=== PATIENT | male | born 1965 | race Two or more races ===

== ENCOUNTER 2021-06-11 15:15 | Inpatient (IN) | payer MEDICAID ==
[~2021-06-11] VITALS: Ht 167.6 cm; Wt 61.2 kg
--- NOTE | 2021-06-11 15:37 | NUR ---
TO ER BED 11. L SIDE BODY PAIN, S/P LADDER SLID AND FELL APPROX 6 FEET HIGH. L WRIST LAC NOTED. +HEAD, L KNEE TRAUMA. PAIN WORST TO L WRIST. NOT UTD W/ TDAP
[2021-06-11] MEDS ORDERED: TDAP [DIPH/PERTUSSIS/TET] 0.5 ML VIAL IM ONE ×2 (16:00→16:04)
[2021-06-11] MEDS ORDERED: MORPHINE SULFATE INJ 2 MG/ML DISP.SYRIN IV ONE ×2 (16:00→18:00)
--- NOTE | 2021-06-11 16:01 | NUR ---
X RAY AT BEDSIDE
[2021-06-11] MEDS ORDERED: MORPHINE SULFATE INJ 4 MG/ML DISP.SYRIN ONE ×2 (16:04→17:58)
--- NOTE | 2021-06-11 16:21 | NUR ---
MOSHE ESTABLISHED R KHADIJAH 20G.
[2021-06-11] MEDS ORDERED: PROPOFOL 200 MG/20 ML VIAL IV ONE (16:30)
[2021-06-11] MEDS ORDERED: PROPOFOL 20 ML IV ONE (16:54)
[2021-06-11] MEDS ORDERED: CEFAZOLIN 1 GM in IV D5W 50 ML IV ONE (17:30)
[2021-06-11] MEDS ORDERED: KETOROLAC TROMETHAMINE 15 MG/ML VIAL ONE (17:58)
[2021-06-11] MEDS ORDERED: KETOROLAC TROMETHAMINE INJ 30 MG/ML VIAL IV ONE (18:00)
[2021-06-11] MEDS ORDERED: HYDROCODONE/APAP 5/325MG TABLET PO PRN (18:30)
[2021-06-11] MEDS ORDERED: ONDANSETRON HCL/PF 4 MG/2 ML VIAL IVP PRN (18:30)
[2021-06-11] MEDS ORDERED: ACETAMINOPHEN 325 MG TABLET PO PRN (18:30)
[2021-06-11] MEDS ORDERED: Z GUARD REMEDY 4 OZ OINT TP PRN (18:30)
[2021-06-11] MEDS ORDERED: TEMAZEPAM 15 MG CAPSULE PO PRN (18:30)
[2021-06-11 19:26] LABS: CALCIUM, SERUM 8.4 mg/dL (8.5-10.1); CREATININE 1.1 mg/dL (0.6-1.3); POTASSIUM 3.5 mmol/L (3.5-5.1)
--- NOTE | 2021-06-11 20:04 | NUR ---
REPORT GIVEN TO TORI HORTA
--- NOTE | 2021-06-11 20:05 | NUR ---
PATIENT BEING TRANSFERRED TO [facility]
[2021-06-11 20:10] VITALS: BP 134/79
[2021-06-11 20:10] LABS: BASOPHILS % (AUTO) 0.2 % (0.0-2.0); EOSINOPHILS % (AUTO) 0.5 % (0.0-6.0); HEMATOCRIT 39 % (39-51); HEMOGLOBIN 12.7 g/dL (13.5-17.5); LYMPHOCYTES # (AUTO) 0.8 K/uL (0.8-4.8); LYMPHOCYTES % (AUTO) 5.9 % (20.0-44.0); MEAN CORPUSCULAR HGB CONC 33 g/dl (31.0-36.0); MEAN CORPUSCULAR VOLUME 88 fL (80-96); MONOCYTES # (AUTO) 0.5 K/uL (0.1-1.30); MONOCYTES % (AUTO) 3.5 % (2.0-12.0); NEUTROPHILS # (AUTO) 12.9 K/uL (1.8-8.9); NEUTROPHILS % (AUTO) 89.9 % (43.0-81.0); PLATELET COUNT (AUTO) 259 K/uL (150-450); RED BLOOD CELL COUNT(AUTO) 4.42 MIL/uL (4.5-6.0); WHITE BLOOD COUNT (AUTO) 14.3 K/uL (4.3-11.0)
[2021-06-11 20:30] VITALS: BP 134/79
[2021-06-11] MEDS: IV NS 0.9% 1,000 ML IV PRN (20:50)
[2021-06-11] MEDS: MORPHINE SULFATE INJ 2 MG/ML DISP.SYRIN IV PRN (21:00)
[2021-06-11] MEDS: CEFAZOLIN 1 GM in IV D5W 50 ML IV SCH (21:54)
[2021-06-12] MEDS: MORPHINE SULFATE INJ 2 MG/ML DISP.SYRIN IV PRN ×4 (03:21→20:24)
[2021-06-12] MEDS: CEFAZOLIN 1 GM in IV D5W 50 ML IV SCH ×3 (04:54→20:23)
[2021-06-12 06:36] LABS: BASOPHILS % (AUTO) 0.3 % (0.0-2.0); EOSINOPHILS % (AUTO) 0.3 % (0.0-6.0); HEMATOCRIT 36 % (39-51); HEMOGLOBIN 11.8 g/dL (13.5-17.5); LYMPHOCYTES # (AUTO) 1.7 K/uL (0.8-4.8); LYMPHOCYTES % (AUTO) 18.4 % (20.0-44.0); MEAN CORPUSCULAR HGB CONC 33 g/dl (31.0-36.0); MEAN CORPUSCULAR VOLUME 88 fL (80-96); MONOCYTES # (AUTO) 0.7 K/uL (0.1-1.30); MONOCYTES % (AUTO) 7.3 % (2.0-12.0); NEUTROPHILS # (AUTO) 6.9 K/uL (1.8-8.9); NEUTROPHILS % (AUTO) 73.7 % (43.0-81.0); PLATELET COUNT (AUTO) 228 K/uL (150-450); WHITE BLOOD COUNT (AUTO) 9.3 K/uL (4.3-11.0)
[2021-06-12 06:42] LABS: CALCIUM, SERUM 8.4 mg/dL (8.5-10.1); MAGNESIUM 2.1 mg/dL (1.8-2.4); POTASSIUM 3.6 mmol/L (3.5-5.1)
--- NOTE | 2021-06-12 07:32 | NUR ---
RN OPENING NOTES Patient seen comfortably lying in bed, breathing even and unlabored, no SOB, no apparent distress noted, denies any pain or discomfort at this time, no grimacing. Call light left within reach, safety precautions in place, brakes locked, side rails up X 2, will monitor closely for any changes.
[2021-06-12 07:54] LABS: THYROID STIMULATING HORMONE 0.534 uIU/mL (0.358-3.74)
[2021-06-12 08:00] VITALS: BP 121/71
[2021-06-12] MEDS: PANTOPRAZOLE 40 MG VIAL IV SCH (08:35)
[2021-06-12] MEDS: IV NS 0.9% 1,000 ML IV PRN (09:59)
--- NOTE | 2021-06-12 12:32 | NUR ---
Patient's belongings 1. wallet with cards, 2. yellow necklace with 2 charms (horse shoe and horn) 3. $726, placed in the safe in nursing office, reminded patient that belongings will be returned prior to discharge and if he needs it sooner to inform the nurse, patient verbalized understanding and gratitude. "No one can pick it up to keep it at home", patient stated. Belongings tag number [id number].
[2021-06-12] MEDS ORDERED: BUPIVACAINE 0.25% 75 MG/30 ML VIAL ONE (12:49)
[2021-06-12] MEDS ORDERED: LIDOCAINE 1% INJ 50 ML MDV IJ ONE (12:49)
--- NOTE | 2021-06-12 14:39 | NUR ---
Patient left for surgery around 02:38pm, remained NPO post-midnight, denies any abdominal pain, no apparent distress notes, no s/s of hypo/hyperglycemia, no change in level of consciousness, no tremors, denies any pain or discomfort, consents and checklist present in patients chart. Patient not wearing any jewelry.
[2021-06-12] MEDS ORDERED: FENTANYL PF 100MCG/2ML AMPUL ONE ×3 (14:51→18:30)
[2021-06-12] MEDS ORDERED: PROPOFOL 20 ML IV ONE (14:52)
[2021-06-12] MEDS ORDERED: MIDAZOLAM HCL 2 MG/2ML VIAL ONE (14:52)
[2021-06-12] MEDS ORDERED: BUPIVACAINE 0.5 % PF 150 MG/30 ML VIAL ONE (16:03)
--- NOTE | 2021-06-12 19:09 | NUR ---
RN CLOSING NOTES Patient not back in unit yet, endorsed to next shift for continuity of care.
[2021-06-12] MEDS ORDERED: ZOLPIDEM TARTRATE 5 MG TABLET PO PRN (19:30)
[2021-06-12] MEDS ORDERED: BISACODYL SUPP (10 MG) 10 MG/SUPP.RECT SUPP.RECT RC PRN (19:30)
[2021-06-12] MEDS ORDERED: SENNOSIDES 8.6 MG TABLET PO PRN (19:30)
[2021-06-12] MEDS ORDERED: HYDROCODONE/APAP 5/325MG TABLET PO PRN (19:30)
[2021-06-12] MEDS ORDERED: ONDANSETRON HCL/PF 4 MG/2 ML VIAL IVP PRN (19:30)
[2021-06-12] MEDS ORDERED: ACETAMINOPHEN 325 MG TABLET PO PRN (19:30)
[2021-06-12] MEDS ORDERED: DOCUSATE SODIUM 100 MG CAPSULE PO PRN (19:30)
--- NOTE | 2021-06-12 19:45 | NUR ---
MS RN OPENING NOTES RECEIVED PATIENT LAYING AWAKE IN BED. A/O X 4. PATIENT WITH REGULAR AND UNLABORED BREATHING ON ROOM AIR TOLERATED WELL. NO SIGNS OR SYMPTOMS OF DISTRESS NOTED AT THIS TIME. NO COMPLAINS OF PAIN OR DISCOMFORT AT THIS TIME. IV ACCESS RAC G #20 INFUSING NS @ 75 ML/HR. IV ACCESS PATENT AND INTACT. SAFETY PRECAUTIONS ENFORCED WITH BED LOCKED AND AT LOWEST POSITION. CALL LIGHT WITHIN REACH AT ALL TIMES. WILL CONTINUE TO MONITOR PATIENT.
[2021-06-12 20:00] VITALS: BP 145/78
[2021-06-12] MEDS: HYDROCODONE/APAP 5/325MG TABLET PO PRN (22:57)
[2021-06-13] MEDS: MORPHINE SULFATE INJ 2 MG/ML DISP.SYRIN IV PRN ×5 (00:30→23:10)
[2021-06-13] MEDS: CEFAZOLIN 1 GM in IV D5W 50 ML IV SCH (04:30)
--- NOTE | 2021-06-13 06:50 | NUR ---
MS RN CLOSING NOTES PATIENT STILL LAYING AWAKE IN BED. A/O X 4. PATIENT WITH REGULAR AND UNLABORED BREATHING ON ROOM AIR TOLERATED WELL. NO SIGNS OR SYMPTOMS OF DISTRESS NOTED AT THIS TIME. NO COMPLAINS OF PAIN OR DISCOMFORT AT THIS TIME. IV ACCESS RAC G #20 INFUSING NS @ 75 ML/HR. IV ACCESS PATENT AND INTACT. SAFETY PRECAUTIONS ENFORCED WITH BED LOCKED AND AT LOWEST POSITION. CALL LIGHT WITHIN REACH AT ALL TIMES. WILL ENDORSE CONTINUITY OF CARE TO DAY SHIFT NURSE.
[2021-06-13] MEDS: PANTOPRAZOLE 40 MG VIAL IV SCH (07:58)
--- NOTE | 2021-06-13 07:59 | NUR ---
WOUND CARE CONSULT: PT PRESENTS WITH ORTHOPEDIC DRESSING TO LEFT UPPER EXTREMITY WITH SMALL AMOUNT OF RED/PINK STRIKETHROUGH DRAINAGE. DISCUSSED WITH RN AND DNP. DEFER TO ORTHOPEDIC SURGEON. RN TO DISCUSS WITH SURGEON. ARM ELEVATED ON PILLOW WITH SLING IN PLACE. WILL SEE PRN.
[2021-06-13 08:00] VITALS: BP 121/72
--- NOTE | 2021-06-13 08:00 | NUR ---
Patient was noted to have minimal amount of reddish-pinkish drainage on his orthopedic dressing to left upper extremity, no unusual odor noted, Dr. Melendez made aware and stated that Alley PARKER will be coming to see patient. Site covered with dania wrapped dressings, and arm elevated on pillow with sling in place, no s/s of circulation impairment noted at this time, skin warm to touch, no pallor or cyanosis noted, pulse present during shift, no swelling noted at this time.
[2021-06-13] MEDS: IV NS 0.9% 1,000 ML IV PRN (08:26)
[2021-06-13 16:00] VITALS: BP 143/68
[2021-06-13] MEDS: HYDROCODONE/APAP 5/325MG TABLET PO PRN ×2 (16:30→20:56)
--- NOTE | 2021-06-13 18:38 | NUR ---
RN CLOSING NOTES Patient lying in bed, no shortness of breath, respirations even and unlabored, no apparent distress noted, no dizziness, no palpitations, no chest pain, remained afebrile. All due medications given per MD order, tolerating well. Patient has an order for IV fluids (0.9NS at 75ml/hr) IV site on his right antecubital, intact and IV fluids infusing well, no swelling, no redness, no c/o pain or discomfort at site. Patient S/P ORIF of left wrist yesterday, surgical site dressing noted with minimal amount of pinkish reddish drainage, no unusual odor, Dr. Perla made aware and acknowledged, Alley PARKER of Dr. Perla came to see patient today and changed the dania wrap, site wrapped in dania bandage and patient is wearing sling on left arm, no s/s of circulation impairment noted at this time, skin warm to touch, no pallor or cyanosis noted, pulse present during shift, minimal swelling noted at this time. Left upper extremity elevated with pillow, and ice packs applied. Pain medication given per MD order as needed when non pharmacological measures ineffective, noted with help. Aspiration precautions observed at all times, kept head of bed elevated, all needs anticipated, kept clean and dry, patient repositioned frequently, safety precautions in place, frequent visual checks rendered, side rails up X 2, brakes locked, call light left within reach, will endorse to next shift for continuity of care.
--- NOTE | 2021-06-13 19:15 | NUR ---
RN NOTE Pt awake in bed, watching TV. A/Ox4, able to make needs known. With LUE dressing clean/dry and intact and LUE splint/sling in place. He denies any pain at this time. No acute distress noted. safety measures in place. Will cont to monitor.
[2021-06-13 20:00] VITALS: BP 119/72
[2021-06-14] MEDS: HYDROCODONE/APAP 5/325MG TABLET PO PRN ×3 (03:26→13:14)
[2021-06-14] MEDS: IV NS 0.9% 1,000 ML IV PRN (04:51)
--- NOTE | 2021-06-14 06:37 | NUR ---
RN NOTE PT RESTING IN BED, EASILY AROUSABLE TO STIMULI. DENIES PAIN AT THIS TIME. PAIN WELL CONTROLLED WITH PRN PAIN MEDS THROUGHOUT THE SHIFT. PT IN NO ACUTE DISTRESS. ALL NEEDS ATTENDED TO. SAFETY MEASURES MAINTAINED.
--- NOTE | 2021-06-14 07:20 | NUR ---
ms rn received on bed, awake,alert,oriented x4,not in any form of distress, respirations even and unlabored,no sob noted, lungs are clear,abdomen soft,positive bowel sounds,denies pain at this time, s/p left wrist sx, w/ dressing dry and intact, will monitor patient.
[2021-06-14] MEDS ORDERED: PANTOPRAZOLE 40 MG TABLET.DR PO SCH (07:30)
[2021-06-14 08:00] VITALS: BP 138/71
[2021-06-14 08:15] VITALS: BP 138/71
[2021-06-14] MEDS ORDERED: HYDR-3972 PO (08:51)
--- NOTE | 2021-06-14 09:20 | NUR ---
ms juan breakfast served,due meds given, tolerated well.,all needs attended.
--- NOTE | 2021-06-14 11:30 | NUR ---
ms pattern room attendant pa came and redress patient's arms, denies pain at this time, all needs attended, no pain at this time, patient ready to go home, waiting for his son.
== END 2021-06-14 15:00 | disposition home or self-care (01) | DRG 315 ==
LOC: ER 15:18 → MED 20:00
PROVIDERS: ADMIT Nurse Practitioner Acute Care; ATTEND Nurse Practitioner Acute Care
PROC: 0PSJ04Z Reposition Left Radius with Internal Fixation Device, Open Approach (ICD-10-PCS; principal; 2021-06-12)
DX: S52.572B Other intraarticular fracture of lower end of left radius, initial encounter for open fracture type I or II (principal); D63.8 Anemia in other chronic diseases classified elsewhere; W11.XXXA Fall on and from ladder, initial encounter; F17.210 Nicotine dependence, cigarettes, uncomplicated; R73.9 Hyperglycemia, unspecified; Z71.6 Tobacco abuse counseling; Y93.89 Activity, other specified; Y92.009 Unspecified place in unspecified non-institutional (private) residence as the place of occurrence of the external cause; Z20.822 Contact with and (suspected) exposure to COVID-19
CPT/HCPCS: 36415; 73070-TC; 73090-TC; 73100-TC; 73110; 73120-TC; 73200-TC; 73564-TC; 80048-TC; 83735-TC; 84100-TC; 84443-TC; 85025-TC; 85730-TC; 87081-TC; 90715; A4217; A4565; A4649; A6253; A6402; C1713; C9113; C9803; G0378; J0690; J1100; J1885; J2250; J2270; J2405; J2704; J3010; J3490; J7030; J7050; J7060